=== PATIENT | female | born 1990 | race Caucasian/White ===

== ENCOUNTER 2023-09-28 10:21 | Emergency (ER) | payer OTHER ==
[~2023-09-28] VITALS: Ht 157.5 cm; Wt 65.8 kg
[2023-09-28 10:32] VITALS: BP 132/103; TEMP 97.8; O2SAT 98
[2023-09-28] MEDS ORDERED: CYCL5TAB PO (12:25)
[2023-09-28] MEDS ORDERED: IBUP-1955 PO (12:25)
== END 2023-09-28 12:53 | disposition home or self-care (01) ==
LOC: ER 10:37
DX: S16.1XXA Strain of muscle, fascia and tendon at neck level, initial encounter (principal); R51.9 Headache, unspecified; V49.9XXA Car occupant (driver) (passenger) injured in unspecified traffic accident, initial encounter; Y93.89 Activity, other specified; Y92.89 Other specified places as the place of occurrence of the external cause; Y99.8 Other external cause status
CPT/HCPCS: 70450-TC; 72125-TC